=== PATIENT | female | born 1980 ===

== ENCOUNTER 2018-11-27 14:15 | Inpatient (IN) | payer OTHER ==
[~2018-11-27] VITALS: Ht 157.5 cm; Wt 86.2 kg
[2018-12-15] MEDS ORDERED: OBSTETRIX DHA1 EACH PO (06:40)
[2018-12-15] MEDS ORDERED: ADULT LOW DOSE81 M1 PO (06:40)
[2018-12-18] MEDS ORDERED: ANUSOL-HC25 MG RECTAL (10:36)
== END 2018-12-18 14:11 | DRG 807 ==
LOC: O/R 14:15 → LDR 12-16 17:17 → OB/GYN 12-17 08:31
PROVIDERS: ADMIT Specialist
PROC: 10E0XZZ Delivery of Products of Conception, External Approach (ICD-10-PCS; principal; 2018-12-16)
PROC: 0KQM0ZZ Repair Perineum Muscle, Open Approach (ICD-10-PCS; 2018-12-16)
PROC: 4A033R1 Measurement of Arterial Saturation, Peripheral, Percutaneous Approach (ICD-10-PCS; 2018-12-16)
PROC: 4A1HXCZ Monitoring of Products of Conception, Cardiac Rate, External Approach (ICD-10-PCS; 2018-12-16)
DX: O70.1 Second degree perineal laceration during delivery (principal); Z37.0 Single live birth; Z3A.39 39 weeks gestation of pregnancy

== ENCOUNTER 2018-12-15 06:17 | Outpatient (CLI) | payer OTHER ==
[2018-12-15] MEDS ORDERED: ADULT LOW DOSE81 M1 PO (06:40)
[2018-12-15] MEDS ORDERED: OBSTETRIX DHA1 EACH PO (06:40)
== END 2018-12-15 14:34 | disposition home or self-care (01) ==
LOC: OBS/DEL 06:17
DX: O26.893 Other specified pregnancy related conditions, third trimester (principal); R10.2 Pelvic and perineal pain